=== PATIENT | female | born 1995 | race Caucasian/White ===

== ENCOUNTER 2017-01-04 13:09 | Emergency (ER) | payer BC ==
[2017-01-04 13:20] VITALS: BP 120/71
--- NOTE | 2017-01-04 13:55 | UC ---
HPI Febrile Illness - HPI Summary HPI Summary: 21 female presents with complaints of fever/chills, night sweats and headache that began Monday night/Monday, 01/01/17. Patient states she has been taking Advil and drinking a lot of water which does give her some relief. She does admit to feeling better throughout the day, she ran 3 miles yesterday. At night her symptoms worsen where she experiences a fever and night sweats. After laying for long periods of time she experiences a headache that is mainly in the back of her head and "heavy/throbbing" feeling. She denies being dehydrated as she has been drinking lots of water. Denies any other congestion, ear pain, sore throat, difficulty breathing, chest pain, neck stiffness, nasuea, vomiting and abdominal pain. Appetite has been fine. Took temperature under her tongue at was found to be 101F. Last dose of ibuprofen was around 9am this morning. Not experiencing pain at this time. Mother wanted her to get checked out with recent meningitis outbreak at [facility]. - History of Current Complaint Chief Complaint: UCGeneralIllness Time Seen by Provider: 01/04/17 13:23 Hx Obtained From: Patient Onset/Duration: Started Days Ago, Still Present Timing: Intermittent - worse at night Initial Severity: Mild Current Severity: Mild Associated Signs and Symptoms: Chills, Headache, Myalgia, Night Sweats - Allergy/Home Medications Allergies/Adverse Reactions: Allergies Allergy/AdvReac Type Severity Reaction Status Date / Time No Known Allergies Allergy Verified 01/04/17 13:20 Home Medications: Home Medications Control 1 tab PO DAILY 01/04/17 [History Confirmed 01/04/17] PMH/Surg Hx/FS Hx/Imm Hx Endocrine/Hematology History: Denies: Hx Diabetes Cardiovascular History: Denies: Hx Hypertension - Surgical History Hx Anesthesia Reactions: No - Immunization History Date of Influenza Vaccine: n/a Infectious Disease History: No Infectious Disease History: Denies: Traveled Outside the [place] in Last 30 Days - Social History Alcohol Use: Weekly Substance Use Type: Reports: None Smoking Status (MU): Never Smoked Tobacco Review of Systems Constitutional: Fever, Chills, Fatigue Skin: Negative Eyes: Negative ENT: Negative Respiratory: Negative Cardiovascular: Negative Gastrointestinal: Negative Genitourinary: Negative Motor: Negative Neurovascular: Negative Musculoskeletal: Negative, Myalgia Neurological: Headache Psychological: Negative All Other Systems Reviewed And Are Negative: Yes Physical Exam Triage Information Reviewed: Yes Appearance: Well-Appearing, No Pain Distress, Well-Nourished Vital Signs: Initial Vital Signs Temp 97.0 F 01/04/17 13:17 Pulse 71 01/04/17 13:17 Resp 14 01/04/17 13:17 BP 120/71 01/04/17 13:17 Pulse Ox 100 01/04/17 13:17 Vital Signs Reviewed: Yes Eyes: Positive: Conjunctiva Clear ENT: Positive: Pharynx normal, TMs normal Dental: Negative: Percussion Tenderness @ Neck: Positive: Supple, Nontender, No Lymphadenopathy. Negative: Nuchal Rigidity - negative brudinski and kernig sign Respiratory: Positive: Chest non-tender, Lungs clear, Normal breath sounds, No respiratory distress Cardiovascular: Positive: RRR, No Murmur, Pulses Normal Abdomen Description: Positive: Nontender, No Organomegaly, Soft. Negative: Splenomegaly Bowel Sounds: Positive: Present Musculoskeletal: Positive: Strength Intact, ROM Intact, No Edema Neurological: Positive: Alert, Muscle Tone Normal Psychological Exam: Normal Psychological: Positive: Normal Response To Family Skin Exam: Normal Course/Dx - Course Course Of Treatment: flu culture obtained and negative. UA obtained to rule out any UTI or pyelonephritis with history and symptoms. UA positive for some blood and bacteria. Prescription will be sent. Educated to take if symptoms begin or if urine culture is positive. if culture is negative and she does not develop symptoms advised she does not have to take the antibiotic. spoke about meningitis signs and symptoms and worsening symptoms to go to the ER. if symptoms persist also follow-up within the next 4-5 days. continue ibuprofen/ tylenol. discussed care with Dr Barraza - Febrile Illness Differential Diagnoses: Meningitis, Other: - Influenza, viral syndrome - Diagnoses Clinic Provider Diagnoses: urinary tract infection, viral syndrome - Provider Notifications Discussed Patient Care With: Dr Barraza Discharge - Discharge Plan Condition: Stable Disposition: HOME Prescriptions: Sulfamethox/Trimethoprim DS* [Bactrim DS 800/160 TAB*] 1 tab PO BID #6 tab Patient Education Materials: Urinary Tract Infection in Women (ED), Fever in Adults (ED), Bacterial Meningitis (ED) Referrals: Non Staff,Doctor [Primary Care Provider] - Additional Instructions: Continue taking Advil as needed for headache and fever. Drink lots of water, rest and wash hands frequently. If you develop symptoms of UTI or have a positive urine culture upon phone call take antibiotic prescribed. If symptoms worsen such as high fevers, worsening headache or new symptoms such as neck stiffness develop please seek medical attention promptly. Encourage follow-up within 4-5 days if symptoms persist.
== END 2017-01-04 15:18 | disposition home or self-care (01) ==
LOC: UCCORT 13:09
DX: N39.0 Urinary tract infection, site not specified (principal); B34.9 Viral infection, unspecified
CPT/HCPCS: 87086; 87502; 99212; G0463

== ENCOUNTER 2017-02-24 16:41 | Emergency (ER) | payer BC ==
[2017-02-24 16:53] VITALS: BP 117/62
[2017-02-24] MEDS ORDERED: Ibuprofen TAB* 600 MG PO ONE (17:45)
--- NOTE | 2017-02-24 18:20 | UC ---
Hand/Wrist HPI - HPI Summary HPI Summary: bent left thumb nail back about 1 1/2 hours ago after getting it caught on a carpet - History Of Current Complaint Chief Complaint: UCUpperExtremity Stated Complaint: LEFT THUMB NAIL ISSUE Time Seen by Provider: 02/24/17 17:38 Hx Obtained From: Patient Hx Last Menstrual Period: 1 MO AGO Mechanism Of Injury: caugh left thumb nail on a carpet Onset/Duration: Sudden Onset Severity Initially: Moderate Severity Currently: Moderate Pain Intensity: 5 Pain Scale Used: 0-10 Numeric Character Of Pain: Aching, Throbbing Aggravating Factor(s): Movement Alleviating: Nothing Associated Signs And Symptoms: Positive: Swelling Related History: Dominant Hand Right - Allergies/Home Medications Allergies/Adverse Reactions: Allergies Allergy/AdvReac Type Severity Reaction Status Date / Time No Known Allergies Allergy Verified 02/24/17 16:53 PMH/Surg Hx/FS Hx/Imm Hx Previously Healthy: Yes Endocrine History Of: Denies: Diabetes Cardiovascular History Of: Denies: Hypertension - Surgical History Surgical History: None - Family History Known Family History: Positive: None Family History: no reported cardiovascular issues in family lineage - Social History Occupation: Student Lives: With Family Alcohol Use: Occasionally Substance Use Type: None Smoking Status (MU): Never Smoked Tobacco - Immunization History Most Recent Tetanus Shot: unknown Review of Systems Constitutional: Negative Skin: Negative Eyes: Negative ENT: Negative Respiratory: Negative Cardiovascular: Negative Gastrointestinal: Negative Genitourinary: Negative Motor: Negative Neurovascular: Negative Musculoskeletal: Negative, Other: - left thumb swollen and tender around nail that has bent back to the nail folds Neurological: Negative Psychological: Negative All Other Systems Reviewed And Are Negative: Yes Physical Exam Triage Information Reviewed: Yes Appearance: Well-Appearing, No Pain Distress, Well-Nourished Vital Signs: Initial Vital Signs Temp 97.9 F 02/24/17 16:46 Pulse 81 02/24/17 16:46 Resp 18 02/24/17 16:46 BP 117/62 02/24/17 16:46 Pulse Ox 100 02/24/17 16:46 Vital Signs Reviewed: Yes Eye Exam: Normal Eyes: Positive: Conjunctiva Clear ENT Exam: Normal ENT: Positive: Normal ENT inspection, Hearing grossly normal. Negative: Nasal congestion, Tonsillar swelling, Tonsillar exudate, Trismus, Muffled/hoarse voice Dental Exam: Normal Neck exam: Normal Neck: Positive: Supple, Nontender Respiratory Exam: Normal Respiratory: Positive: Chest non-tender, No respiratory distress, No accessory muscle use Cardiovascular Exam: Normal Cardiovascular: Positive: No Murmur, Pulses Normal, Brisk Capillary Refill Musculoskeletal Exam: Normal Musculoskeletal: Positive: Strength Intact, ROM Intact, Edema @ - distal thumb( left) Neurological Exam: Normal Neurological: Positive: Alert, Muscle Tone Normal Psychological Exam: Normal Skin Exam: Normal Re-Evaluation - Re-Evaluation First Eval Change: Improved - washed thumb with betadine nail clipped back to the avulsion , dressing and splint applied patient tolerated well Hand/Wrist Course/Dx - Course Course Of Treatment: soap and water wash, ice , elevation,ibuprofen, dressing, splint, follow with [facility] or return as needed - Differential Dx/Diagnosis Differential Diagnosis/HQI/PQRI: Contusion, Paronychia, Subungual Hematoma, Other - partial nail avulasion Provider Diagnoses: Partial nail avulasion left thumb Discharge - Discharge Plan Condition: Stable Disposition: HOME Patient Education Materials: Ibuprofen (By mouth), RICE Therapy (ED), Nail Avulsion (ED), Acute Wounds (ED) Referrals: Non Staff,Doctor [Primary Care Provider] - Additional Instructions: Follow at [facility] or return as needed
== END 2017-02-24 18:24 | disposition home or self-care (01) ==
LOC: UCCORT 16:41
DX: S61.102A Unspecified open wound of left thumb with damage to nail, initial encounter (principal); X58.XXXA Exposure to other specified factors, initial encounter; Y93.9 Activity, unspecified; Y92.9 Unspecified place or not applicable
CPT/HCPCS: 99213; A9270-GY; G0463